=== PATIENT | female | born 1960 | race African-American/Black ===

== ENCOUNTER 2016-12-17 18:11 | Emergency (ER) | payer MEDICAID ==
[~2016-12-17] VITALS: Ht 154.9 cm; Wt 86.0 kg
[~2016-12-17 18:11] MED LIST: GABAPENTIN; HCTZ; HYDROCHLOROTHIAZIDE
[2016-12-17] MEDS ORDERED: ACETAMINOPHEN 325MG TABLET PO ONE (18:45)
[2016-12-17] MEDS ORDERED: IPRATROPIUM/ALBUTEROL 0.5-3(2.5)MG/3ML NEB HHN ONE ×2 (18:45→19:30)
[2016-12-17] MEDS ORDERED: METHYLPREDNISOLONE SOD SUCC 125 MG/2 ML VIAL IV STA (19:19)
[2016-12-17] MEDS ORDERED: PREDNISONE 20MG TABLET PO STA (19:19)
[2016-12-17] MEDS ORDERED: METHYLPREDNISOLONE SOD SUCC 125 MG/2 ML VIAL IM ONE (19:45)
[2016-12-17 20:20] VITALS: BP 119/77
[2016-12-17] MEDS ORDERED: ALBUTEROL (0.083%) 2.5MG/3ML NEB HHN STA (20:34)
== END 2016-12-17 21:52 | disposition home or self-care (01) ==
LOC: ER 18:41
DX: J45.901 Unspecified asthma with (acute) exacerbation (principal); I10 Essential (primary) hypertension
CPT/HCPCS: 71010; 94640; 96372; 99285; J2930; J7512; J7611; Z7610; J7620

== ENCOUNTER 2017-03-14 09:18 | Emergency (ER) | payer MEDICAID ==
[~2017-03-14] VITALS: Ht 167.6 cm; Wt 68.0 kg
[2017-03-14 09:26] VITALS: BP 139/92
[2017-03-14] MEDS ORDERED: TETRACAINE 0.5% OPHTH DROPS 4ML OP ONE (11:45)
[2017-03-14] MEDS ORDERED: FLUORESCEIN SODIUM 1MG/STRIP OP ONE (11:45)
== END 2017-03-14 12:47 | disposition home or self-care (01) ==
LOC: ER 10:34
DX: S05.01XA Injury of conjunctiva and corneal abrasion without foreign body, right eye, initial encounter (principal); I10 Essential (primary) hypertension; Z86.73 Personal history of transient ischemic attack (TIA), and cerebral infarction without residual deficits; X58.XXXA Exposure to other specified factors, initial encounter; Y93.89 Activity, other specified; Y92.89 Other specified places as the place of occurrence of the external cause; Y99.8 Other external cause status
CPT/HCPCS: 99283

== ENCOUNTER 2018-09-20 11:01 | Emergency (ER) | payer MEDICAID ==
[~2018-09-20] VITALS: Ht 165.1 cm; Wt 82.0 kg
[2018-09-20] MEDS ORDERED: SODIUM CHLORIDE 0.9% 1,000 ML IV ONE (11:14)
[2018-09-20 11:30] VITALS: BP 116/75
[2018-09-20 11:45] LABS: BASOPHILS % 0.3 % (0.0-2.0); EOSINOPHILS % 2.1 % (0.0-5.0); HEMATOCRIT. 44.7 % (36.0-48.0); HEMOGLOBIN. 14.7 g/dL (12.0-16.0); LYMPHOCYTES % 40.6 % (20.0-50.0); MEAN CORPUSCULAR HEMOGLOBIN 28.3 pg (28.0-32.0); MEAN CORPUSCULAR VOLUME 86.1 fL (81.0-99.0); MEAN PLATELET VOLUME 9.5 fl (7.4-10.4); MONOCYTES % 9.3 % (2.0-8.0); NEUTROPHILS % 47.7 % (40.0-76.0); PLATELET 214 x1000/uL (130-400); RED CELL DISTRIBUTION WIDTH 13.7 % (11.6-14.6)
[2018-09-20 11:47] LABS: CHLORIDE 111 mEq/L (98-107)
[2018-09-20] MEDS ORDERED: LIDOCAINE HCL 1% 20ML VIAL (Pyxis) INJ ONE (12:42)
== END 2018-09-20 14:00 | disposition left against medical advice (07) ==
LOC: ER 11:01
DX: R55 Syncope and collapse (principal)
CPT/HCPCS: 36415; 71045; 80053; 83880; 84484; 85025; 93005; 99284; J3490; J7030

== ENCOUNTER 2019-01-10 09:39 | Emergency (ER) | payer MEDICAID ==
[~2019-01-10] VITALS: Ht 157.5 cm; Wt 83.0 kg
[2019-01-10 11:23] LABS: BASOPHILS % 0.6 % (0.0-2.0); EOSINOPHILS % 2.7 % (0.0-5.0); MEAN CORPUSCULAR VOLUME 86.5 fL (81.0-99.0); MEAN PLATELET VOLUME 9.9 fl (7.4-10.4); MONOCYTES % 10.3 % (2.0-8.0); NEUTROPHILS % 49.4 % (40.0-76.0); PLATELET 187 x1000/uL (130-400); RED BLOOD CELL COUNT 4.85 mill/uL (4.2-5.4); RED CELL DISTRIBUTION WIDTH 14.4 % (11.6-14.6)
[2019-01-10 11:29] LABS: CHLORIDE 111 mEq/L (98-107)
[2019-01-10 12:22] VITALS: BP 141/72
== END 2019-01-10 12:37 | disposition home or self-care (01) ==
LOC: ER 09:39
DX: R60.0 Localized edema (principal); Z98.890 Other specified postprocedural states
CPT/HCPCS: 36415; 71045; 83880; 84484; 93005; 99284

== ENCOUNTER 2019-03-05 10:00 | Emergency (ER) | payer MEDICAID ==
[~2019-03-05] VITALS: Ht 157.5 cm; Wt 81.3 kg
[2019-03-05 12:03] VITALS: BP 129/84
[2019-03-05] MEDS ORDERED: DIPHENHYDRAMINE 25MG CAPSULE PO ONE (12:30)
== END 2019-03-05 12:55 | disposition home or self-care (01) ==
LOC: ER 10:00
DX: L30.9 Dermatitis, unspecified (principal)
CPT/HCPCS: 99282; Q0163